=== PATIENT | female | born 1945 | race Caucasian/White ===

== ENCOUNTER 2024-06-10 13:43 | Emergency (ER) | payer MEDICAID ==
[~2024-06-10] VITALS: Ht 157.5 cm; Wt 55.3 kg
[2024-06-10 13:50] VITALS: BP_SYST 176; PULSE 58; RESP 16; TEMP 97.1; O2SAT 98
[2024-06-10] MEDS: ACETAMINOPHEN 500 MG TABLET PO ONE (14:28)
[2024-06-10] MEDS: cloNIDine HCL 0.1 MG TABLET PO ONE (14:28)
[2024-06-10] MEDS ORDERED: IBUP-2018 PO (16:24)
[2024-06-10] MEDS ORDERED: GENT5DRO7 RIGHT EYE (16:24)
[2024-06-10] MEDS: KETOROLAC TROMETHAMINE 30 MG VIAL IM ONE (17:10)
[2024-06-10 17:11] VITALS: BP_SYST 111; PULSE 58; RESP 16; TEMP 97.1; O2SAT 98
== END 2024-06-10 17:04 | disposition home or self-care (01) ==
LOC: SED 13:43
DX: R51.9 Headache, unspecified (principal); H11.31 Conjunctival hemorrhage, right eye; I10 Essential (primary) hypertension
CPT/HCPCS: 99285; 70450; 70480; 96372; J1885